=== PATIENT | female | born 1980 | race Asian ===

== ENCOUNTER 2023-01-11 16:46 | Emergency (ER) | payer OTHER ==
[2023-01-11 17:07] VITALS: BP 104/68; PULSE 83; RESP 18; TEMP 98.4; BMI 28.5
[2023-01-11] MEDS ORDERED: diphenhydrAMINE HCL 25 MG CAPSULE (FP) PO ONE ×2 (18:33→18:40)
[2023-01-11] MEDS ORDERED: IBUPROFEN 600 MG TABLET (FP) PO ONE ×2 (18:34→18:41)
[2023-01-11] MEDS ORDERED: DEXAMETHASONE 4 MG TABLET (FP) ONE (18:38)
== END 2023-01-11 19:31 | disposition home or self-care (01) ==
LOC: JERFT 16:46
DX: M79.672 Pain in left foot (principal); L29.9 Pruritus, unspecified
CPT/HCPCS: 73630-TC-LT; 99283-25

== ENCOUNTER 2023-05-17 12:33 | Emergency (ER) | payer OTHER ==
[2023-05-17 12:40] VITALS: BP 103/68; PULSE 76; RESP 18; TEMP 98; BMI 28.6
[2023-05-17] MEDS ORDERED: ACETAMINOPHEN 1000 MG/100 ML BAG IVPB ONE (15:10)
[2023-05-17] MEDS ORDERED: SODIUM CHLORIDE 1,000 ML IV STA (15:10)
[2023-05-17] MEDS ORDERED: METOCLOPRAMIDE HCL INJECTION 10 MG/2 ML VIAL IVPUSH ONE (15:10)
[2023-05-17] MEDS ORDERED: METOCLOPRAMIDE HCL INJECTION 10 MG/2 ML VIAL ONE (15:28)
[2023-05-17] MEDS ORDERED: ACETAMINOPHEN INJECTION 100 ML IVPB ONE (15:28)
[2023-05-17 15:33] LABS: BASO % 0.9 % (0-2.0); EOS % 2.7 % (0-4.5); HEMATOCRIT 39.1 % (32.4-45.2); HEMOGLOBIN 12.9 GM/dL (10.7-15.3); LYMPH % 36.6 % (8-40); MCH 28.1 pg (25.7-33.7); MCHC 33.1 g/dl (32.0-36.0); MEAN CELL VOLUME 84.9 fl (80-96); MEAN PLT VOLUME 9.1 fl (7.5-11.1); MONO % 9.2 % (3.8-10.2); NEUT % 50.6 % (42.8-82.8); PLATELET COUNT 265 10^3/uL (134-434); RDW 13.2 % (11.6-15.6); WHITE BLOOD COUNT 6.6 K/mm3 (4.0-10.0)
[2023-05-17 15:49] LABS: POTASSIUM 4.3 mmol/L (3.5-5.1)
[2023-05-17 15:50] LABS: ALBUMIN 3.8 g/dl (3.4-5.0); CALCIUM 9.2 mg/dL (8.5-10.1)
[2023-05-17 15:51] LABS: BLOOD UREA NITROGEN 9.7 mg/dL (7-18)
[2023-05-17 15:53] LABS: CREATININE 0.6 mg/dL (0.55-1.3)
[2023-05-17 15:56] LABS: BILIRUBIN,TOTAL 0.2 mg/dL (0.2-1); TOT PROT 7.4 g/dl (6.4-8.2)
== END 2023-05-17 16:22 | disposition home or self-care (01) ==
LOC: JER 12:33
PROC: 3E033NZ Introduction of Analgesics, Hypnotics, Sedatives into Peripheral Vein, Percutaneous Approach (ICD-10-PCS; principal; 2023-05-17)
PROC: 3E033GC Introduction of Other Therapeutic Substance into Peripheral Vein, Percutaneous Approach (ICD-10-PCS; 2023-05-17)
PROC: 3E0337Z Introduction of Electrolytic and Water Balance Substance into Peripheral Vein, Percutaneous Approach (ICD-10-PCS; 2023-05-17)
DX: G43.909 Migraine, unspecified, not intractable, without status migrainosus (principal); Z20.822 Contact with and (suspected) exposure to COVID-19
CPT/HCPCS: 0241U-QW; 36415; 80053; 85025; 99284-25